=== PATIENT | female | born 1985 | race American Indian/Alaskan Native ===

== ENCOUNTER 2017-02-12 07:23 | Inpatient (IN) | payer MEDICAID ==
[2017-02-12] MEDS ORDERED: Oxytocin/Lactated Ringers 10 UNIT/1,000 ML BAG IV SCH (08:00)
[2017-02-12] MEDS ORDERED: Sodium Chloride 0.9% 10 ML Syringe FLUSH PRN (08:00)
[2017-02-12] MEDS ORDERED: Ondansetron 4 MG/2 ML SDV IVPUSH PRN ×2 (08:00→12:26)
[2017-02-12] MEDS ORDERED: Acetaminophen 325 MG Tab PO PRN (08:00)
[2017-02-12] MEDS ORDERED: Misoprostol 25 MCG (1/4 of 100 MCG) Tab PO PRN (08:05)
[2017-02-12] MEDS ORDERED: Lactated Ringers 1,000 ML IV SCH (08:15)
--- NOTE | 2017-02-12 08:31 | PCM.LDHP ---
L&D History of Present Illness - General Date of Service: 02/12/17 Admit Problem/Dx: Patient Status Order with Admit Dx/Problem 02/12/17 08:00 Patient Status [ADT] Routine Admission Diagnosis/Problem Admission Diagnosis/Problem Source of Information: Patient History Limitations: Reports: No Limitations - History of Present Illness Introduction:: Elsa is a 31-year-old at 39 weeks and 4 days who is being admitted for elective induction of labor. She reports that overall things have been going well and her mild upper respiratory infection is resolving. She reports that last evening she started having some minor vaginal bleeding mixed with her mucoid discharge. She reports that she is having some increased frequency in contractions but has not been timing them. She reports good movement. She denies any watery leaking of fluid. Quality: Reports: Dull, Pressure Severity: Mild Associated Symptoms: Reports: vaginal bleeding, vaginal discharge, mild amount Present Illness Comments:: Elsa is a 31-year-old at 39 and 4 weeks by 11 week ultrasound. She has been receiving care through several providers with a transfer of care to our practice at 33 weeks 4 days. Prior to transfer care she was receiving care in [place] beginning at 11 weeks. Her initial lab work is received from her previous provider show O+ blood type with a positive antibody screen that resulted with [place]on antibodies. Per their records the father of the baby was tested and is negative for the Meka antigen and no additional workup is needed. On our clinic had tried to receive the results of the father of the baby but we have been unsuccessful. Her CBC on 08/25/16 showed a hemoglobin of 12.5 and platelet count of 20 41,000. Other labs for her initial lab panel show rubella nonimmune, RPR negative, hepatitis B surface antigen nonreactive, and HIV negative. She had a Pap smear on 07/31/16 that was satisfactory for evaluation and negative for lesion or malignancy. She was negative for gonorrhea and chlamydia. Her 1 hour glucose test was normal at 82. Her hematocrit on 11/25/16 was 35%. She received flu vaccine on 01/22/17. Her is complicated by abnormal titer as listed above with Avon antibodies but per outside reports negative Meka antigen screening for the father of the baby, rubella nonimmune, history of ectopic managed medically, history of spontaneous with placenta previa requiring D&C and multiple blood transfusions that is suspected to have lead to her forming the Meka antibody. - Related Data Allergies/Adverse Reactions: Allergies Allergy/AdvReac Type Severity Reaction Status Date / Time banana Allergy Itching Verified 02/12/17 07:45 watermelon Allergy Itching Verified 02/12/17 07:45 Home Medications: Home Meds Vits #93/Iron Fum/FA [ Formula Tablet] 02/12/17 [History] Past Medical History HEENT History: Reports: Allergic Rhinitis PREVENTION COORDINATOR History: Reports: None : 4 Para: 3 (0030) Dermatologic History: Reports: Eczema - Past Surgical History Female Surgical History: Reports: D&C (For placental abruption in the setting of placenta previa and third ) Social & Family History - Family History Cardiac: Reports: None Respiratory: Reports: None Endocrine/Metabolic: Reports: None - Tobacco Use Smoking Status *Q: Never Smoker - Alcohol Use Alcohol Use History: No - Recreational Drug Use Recreational Drug Use: No - Sexual History Sexual History: Reports: Single Partner - Living Situation & Occupation Living situation: Reports: , with Family Occupation: Unemployed H&P Review of Systems - Review of Systems: Review Of Systems: See Below General: Denies: Fever, Chills HEENT: Reports: Post Nasal Drip, Sinus Congestion (resolving). Denies: Headaches, Sore Throat, Visual Changes Pulmonary: Denies: Shortness of Breath, Wheezing, Cough Cardiovascular: Denies: Chest Pain, Palpitations Gastrointestinal: Reports: Diarrhea (Mild). Denies: Abdominal Pain, Constipation, Nausea, Vomiting Genitourinary: Denies: Dysuria, Frequency, Burning, Pain, Urgency Musculoskeletal: Reports: Back Pain. Denies: Leg Pain, Joint Pain, Muscle Pain Skin: Denies: Rash Psychiatric: Denies: Depression, Anxiety Neurological: Denies: Headache Hematologic/Lymphatic: Denies: Anemia, Easy Bleeding, Easy Bruising Immunologic: Reports: Seasonal Allergy L&D Exam - Exam Exam: See Below - Vital Signs Weight: 70.171 kg - OB Specific Contraction Duration (sec): 30 Contraction Frequency (min): Irregular Contraction Intensity: Mild Movement: Active Heart Tones: Present Heart Tones per Min: 135 (Positive accelerations) Heart Rate (FHR) Variability: Moderate (6-25 bmp) Presentation: Vertex Estimated Weight: 6.5-7 lbs by Tania - De La Rosa Score De La Rosa Score Cervix Position: Posterior De La Rosa Score Consistency: Soft De La Rosa Score Effacement: 51-70% De La Rosa Score Dilation: 1-2 cm De La Rosa Score 's Station: -3 De La Rosa Score Total: 5 - Exam General: Alert, Oriented HEENT: Conjunctiva Clear, EOMI Neck: Supple, Trachea Midline Lungs: Clear to Auscultation, Normal Respiratory Effort Cardiovascular: Regular Rate, Regular Rhythm GI/Abdominal Exam: Soft, Non-Tender Genitourinary: Normal external exam Back Exam: Normal Inspection Extremities: Normal Inspection Skin: Warm, Dry, Intact - Problem List (1) 39 weeks gestation of SNOMED Code(s): 31397815 ICD Code: Z3A.39 - 39 WEEKS GESTATION OF Status: Acute Current Visit: Yes (2) Elective induction of labor planned SNOMED Code(s): 520501727 ICD Code: [id number] - Status: Acute Current Visit: Yes (3) Abnormal antibody titer SNOMED Code(s): 381319312 ICD Code: R76.8 - OTHER SPECIFIED ABNORMAL IMMUNOLOGICAL FINDINGS IN SERUM Status: Acute Current Visit: Yes (4) Rubella non-immune status, antepartum SNOMED Code(s): 736053478 ICD Code: O99.89 - OTH DISEASES AND CONDITIONS COMPL PREG/CHLDBRTH; Z28.3 - UNDERIMMUNIZATION STATUS Status: Acute Current Visit: Yes (5) History of ectopic SNOMED Code(s): 707290360 ICD Code: Z87.59 - PERSONAL HISTORY OF COMP OF PREG, CHLDBRTH AND THE PUERP Status: Acute Current Visit: Yes Problem List Initiated/Reviewed/Updated: Yes Orders Last 24hrs: Active Orders 24 hr Category Date Time Status Patient Status [ADT] Routine ADT 02/12/17 08:00 Ordered Activity as Tolerated [RC] PFP Care 02/12/17 08:00 Ordered Antiembolic Devices [RC] .Routine Care 02/12/17 08:01 Ordered Communication Order [RC] ASDIRECTED Care 02/12/17 08:00 Ordered Communication Order [RC] ASDIRECTED Care 02/12/17 08:05 Ordered Communication Order [RC] ASDIRECTED Care 02/12/17 08:05 Ordered Communication Order [RC] ASDIRECTED Care 02/12/17 08:05 Ordered Heart Tones [RC] ASDIRECTED Care 02/12/17 08:01 Ordered Monitoring [RC] INTERMITTENT Care 02/12/17 08:05 Ordered Notify Provider Vital Signs [RC] PRN Care 02/12/17 08:03 Ordered Notify Provider [RC] ASDIRECTED Care 02/12/17 08:05 Ordered Notify Provider [RC] PFP Care 02/12/17 08:00 Ordered Notify Provider [RC] PRN Care 02/12/17 08:00 Ordered Peripheral IV Care [RC] . DIRECTED Care 02/12/17 08:01 Ordered Pump Management, Intrathecal [RC] ASDIRECTED Care 02/12/17 08:05 Ordered Up ad Fiona [RC] ASDIRECTED Care 02/12/17 08:07 Ordered Urinary Catheter Assessment [RC] ASDIRECTED Care 02/12/17 08:00 Ordered VTE/DVT Education [RC] PER UNIT ROUTINE Care 02/12/17 08:01 Ordered Vaginal Exam [RC] ASDIRECTED Care 02/12/17 08:05 Ordered Vital Signs [RC] ASDIRECTED Care 02/12/17 08:05 Ordered Vital Signs [RC] PER UNIT ROUTINE Care 02/12/17 08:00 Ordered Regular Diet [DIET] Diet 02/12/17 Breakfast Ordered CBC W/O DIFF,HEMOGRAM [HEME] Routine Lab 02/12/17 08:00 Ordered Acetaminophen [Tylenol] Med 02/12/17 08:00 Ordered 650 mg PO Q6H PRN Lactated Ringers [Ringers, Lactated] 1,000 ml Med 02/12/17 08:00 Ordered IV ASDIRECTED Lactated Ringers [Ringers, Lactated] 1,000 ml Med 02/12/17 08:15 Ordered IV ASDIRECTED Misoprostol [Cytotec] Med 02/12/17 08:05 Ordered 25 mcg PO Q4H PRN Ondansetron [Zofran] Med 02/12/17 08:00 Ordered 4 mg IVPUSH Q4H PRN Oxytocin/Lactated Ringers [Pitocin in LR 10 Units/1,000 Med 02/12/17 08:00 Ordered ML] 10 unit in 1,000 ml IV .CONTINUOUS Sodium Chloride 0.9% [Saline Flush] Med 02/12/17 08:00 Ordered 10 ml FLUSH ASDIRECTED PRN DVT/VTE Prophylaxis Reflex [OM.PC] Routine Ot 02/12/17 08:00 Ordered Electronic Heart Tones Ext w TOCO [WOMSER] Ot 02/12/17 08:00 Ordered Routine Electronic Heart Tones Internal [WOMSER] Per Unit Ot 02/12/17 08:00 Ordered Routine Medication Administration Instruction [OM.PC] Ot 02/12/17 08:15 Ordered ASDIRECTED Peripheral IV Insertion Adult [OM.PC] Routine Ot 02/12/17 08:00 Ordered Peripheral IV Insertion Adult [OM.PC] Routine Ot 02/12/17 08:05 Ordered Resuscitation Status Routine Resus Stat 02/12/17 08:00 Ordered Medication Orders Acetaminophen (Tylenol) 650 mg PO Q6H PRN PRN Reason: Pain (Mild 1-3) and fever Lactated Ringer's (Ringers, Lactated) 1,000 mls @ 100 mls/hr IV ASDIRECTED ALISON Lactated Ringer's (Ringers, Lactated) 1,000 mls @ 40 mls/hr IV ASDIRECTED ALISON Oxytocin/Lactated Ringer's (Pitocin In Lr 10 Units/1,000 Ml) 10 unit in 1,000 mls @ 100 mls/hr IV .CONTINUOUS [facility] Misoprostol (Cytotec) 25 mcg PO Q4H PRN PRN Reason: cervical ripening Ondansetron HCl (Zofran) 4 mg IVPUSH Q4H PRN PRN Reason: Nausea/Vomiting Sodium Chloride (Saline Flush) 10 ml FLUSH ASDIRECTED PRN PRN Reason: Keep Vein Open Assessment/Plan Comment:: * Refer to observation for elective induction of labor * Start induction of labor with Cytotec 25 mcg vaginally now and every 4 hours * Intermittent monitoring while on Cytotec with monitoring for an hour after placement of Cytotec and may ambulate as tolerated with category 1 monitoring * Place IV and have IV fluids at 125 ml/hr if not tolerating regular diet * May have regular diet while on Cytotec induction * Activity as tolerated * May have epidural as desired * Patient to have MMR vaccine after delivery due to rubella nonimmune status * Plans to breast-feed after delivery * Anticipate vaginal delivery unless otherwise indicated Ildefonso La M.D. 8:54 AM 02/12/2017
--- NOTE | 2017-02-12 12:08 | PCM.PNLD ---
Labor Progress Note - VS & Meds Vital Signs: Last Vital Signs Temp 36.3 C 02/12/17 08:05 Pulse 82 02/12/17 08:05 Resp 16 02/12/17 08:05 BP 112/72 02/12/17 08:05 Pulse Ox Active Medications: Current Medications Acetaminophen (Tylenol) 650 mg PO Q6H PRN PRN Reason: Pain (Mild 1-3) and fever Lactated Ringer's (Ringers, Lactated) 1,000 mls @ 100 mls/hr IV ASDIRECTED ALISON Lactated Ringer's (Ringers, Lactated) 1,000 mls @ 40 mls/hr IV ASDIRECTED ALISON Oxytocin/Lactated Ringer's (Pitocin In Lr 10 Units/1,000 Ml) 10 unit in 1,000 mls @ 100 mls/hr IV .CONTINUOUS [facility] Misoprostol (Cytotec) 25 mcg PO Q4H PRN PRN Reason: cervical ripening Last Admin: 02/12/17 08:27 Dose: 25 mcg Ondansetron HCl (Zofran) 4 mg IVPUSH Q4H PRN PRN Reason: Nausea/Vomiting Sodium Chloride (Saline Flush) 10 ml FLUSH ASDIRECTED PRN PRN Reason: Keep Vein Open - Uterine Contractions Uterine Monitoring Mode: External Meyers Contraction Frequency (min): Every 2-3 min with couplet contractions Contraction Duration (sec): 30 Contraction Intensity: Mild to Moderate Uterine Resting Tone: Soft - Monitoring Monitor Mode: Doppler/Auscultation Heart Rate (FHR) Baseline: 145 (with positive accelerations) Heart Rate (FHR) Variability: Moderate (6-25 bmp) Accelerations: Present, 15x15 Decelerations: None Strip Review: Category I - Vaginal Exam Dilation (cm): 2 Effacement (Percent): 70 Station: -3 Cervical Position: Midposition Sterile Vaginal Exam Performed By: Ildefonso La - Labor Progress (Free Text) Labor Progress: * Patient with some cervical change from 1 to 2 cm with first dose of Cytotec * Tachysystole after 4 hours after first dose of Cytotec. Will give additional hour to monitor contractions and determine if we should go to next dose of Cytotec or start on Pitocin. * Patient may have epidural as desired * Patient may have lunch Ildefonso La MD 12:08 PM 02/12/17
[2017-02-12] MEDS ORDERED: ePHEDrine 50 MG/ML SDV IVPUSH PRN (12:26)
[2017-02-12] MEDS ORDERED: fentaNYL 100 MCG/2 ML SDV EPIDUR PRN (12:26)
--- NOTE | 2017-02-12 12:32 | PCM.PREANE ---
Preanesthetic Assessment - Anesthesia/Transfusion/Family Hx Anesthesia History: Prior Anesthesia Without Reaction Family History of Anesthesia Reaction: No Transfusion History: Prior Transfusion Without Reaction Intubation History: Unknown - Review of Systems Pulmonary: Cough Cardiovascular: No Symptoms Gastrointestinal: Diarrhea Neurological: No Symptoms Other: Reports: Sinus Problem (recent cold with sinus drainage noted.) - Physical Assessment NPO Status Date: 02/12/17 NPO Status Time: 10:00 Pulse: 82 O2 Sat by Pulse Oximetry: 99 Respiratory Rate: 16 Blood Pressure: 112/72 Temperature: 36.3 C Vital Signs: Last Vital Signs Temp 36.3 C 02/12/17 08:05 Pulse 82 02/12/17 08:05 Resp 16 02/12/17 08:05 BP 112/72 02/12/17 08:05 Pulse Ox Height: 1.57 m Weight: 70.171 kg ASA Class: 2 Mental Status: Alert & Oriented x3 Airway Class: Mallampati = 3 Dentition: Reports: Normal Dentition, Caries Thyro-Mental Finger Breadths: 3 Mouth Opening Finger Breadths: 3 ROM/Head Extension: Full Lungs: Clear to Auscultation, Normal Respiratory Effort Cardiovascular: Regular Rate, Regular Rhythm, No Murmurs - Lab Values: Laboratory Last Values WBC 7.90 K/mm3 (3.98-10.04) 02/12/17 08:25 RBC 4.22 M/mm3 (3.98-5.22) 02/12/17 08:25 Hgb 11.9 gm/L (11.2-15.7) 02/12/17 08:25 Hct 35.7 % (34.1-44.9) 02/12/17 08:25 MCV 84.6 fl (79.4-94.8) 02/12/17 08:25 MCH 28.2 pg (25.6-32.2) 02/12/17 08:25 MCHC 33.3 g/dl (32.2-35.5) 02/12/17 08:25 RDW Std Deviation 40.8 fL (36.4-46.3) 02/12/17 08:25 Plt Count 272 K/mm3 (182-369) 02/12/17 08:25 MPV 11.6 fl (9.4-12.3) 02/12/17 08:25 Above labs reviewed and noted. 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 Other OB/BYN History: placental abruption/previa Dermatologic History: Reports: Eczema - Past Surgical History Female Surgical History: Reports: D&C (For placental abruption in the setting of placenta previa and third ) - SUBSTANCE USE Smoking Status *Q: Never Smoker Second Hand Smoke Exposure: No Recreational Drug Use History: No - HOME MEDS Home Medications: Home Meds Vits #93/Iron Fum/FA [ Formula Tablet] 02/12/17 [History] - CURRENT (IN HOUSE) MEDS Current Meds: Current Medications Acetaminophen (Tylenol) 650 mg PO Q6H PRN PRN Reason: Pain (Mild 1-3) and fever Ephedrine Sulfate (Ephedrine Sulfate) 5 mg IVPUSH ASDIRECTED PRN PRN Reason: Hypotension Fentanyl (Sublimaze) 100 mcg EPIDUR Q3H PRN PRN Reason: Pain Fentanyl/Bupivacaine HCl (Fentanyl/Bupivacaine/Ns 2 Mcg-0.125% 100 Ml) 100 ml EPIDUR ASDIRECTED ALISON Lactated Ringer's (Ringers, Lactated) 1,000 mls @ 100 mls/hr IV ASDIRECTED ALISON Lactated Ringer's (Ringers, Lactated) 1,000 mls @ 40 mls/hr IV ASDIRECTED ALISON Oxytocin/Lactated Ringer's (Pitocin In Lr 10 Units/1,000 Ml) 10 unit in 1,000 mls @ 100 mls/hr IV .CONTINUOUS [facility] Misoprostol (Cytotec) 25 mcg PO Q4H PRN PRN Reason: cervical ripening Last Admin: 02/12/17 08:27 Dose: 25 mcg Ondansetron HCl (Zofran) 4 mg IVPUSH Q4H PRN PRN Reason: Nausea/Vomiting Ondansetron HCl (Zofran) 4 mg IVPUSH ONETIME PRN PRN Reason: Nausea/Vomiting Sodium Chloride (Saline Flush) 10 ml FLUSH ASDIRECTED PRN PRN Reason: Keep Vein Open
[2017-02-12] MEDS: Lactated Ringers 1,000 ML IV SCH ×3 (13:45→22:12)
[2017-02-12] MEDS: Bupivacaine/fentaNYL/NS 100 ML Bag EPIDUR SCH ×2 (14:11→22:11)
[2017-02-12] MEDS ORDERED: Bupivacaine 0.25% 10 ML SDV ONE (22:22)
[2017-02-13] MEDS ORDERED: Sodium Chloride 0.9% 10 ML Syringe FLUSH PRN ×2 (01:38→10:36)
[2017-02-13] MEDS ORDERED: Oxytocin/Lactated Ringers 10 UNIT/1,000 ML BAG IV SCH ×2 (01:45→10:36)
[2017-02-13] MEDS ORDERED: Lactated Ringers 1,000 ML IV SCH ×2 (01:45→10:36)
--- NOTE | 2017-02-13 01:45 | PCM.PNLD ---
Labor Progress Note - VS & Meds Vital Signs: Last Vital Signs Temp 36.3 C 02/12/17 12:37 Pulse 82 02/12/17 12:37 Resp 16 02/12/17 12:37 BP 112/72 02/12/17 12:37 Pulse Ox 99 02/12/17 12:37 Active Medications: Current Medications Acetaminophen (Tylenol) 650 mg PO Q6H PRN PRN Reason: Pain (Mild 1-3) and fever Ephedrine Sulfate (Ephedrine Sulfate) 5 mg IVPUSH ASDIRECTED PRN PRN Reason: Hypotension Fentanyl (Sublimaze) 100 mcg EPIDUR Q3H PRN PRN Reason: Pain Last Admin: 02/12/17 14:11 Dose: 100 mcg Fentanyl/Bupivacaine HCl (Fentanyl/Bupivacaine/Ns 2 Mcg-0.125% 100 Ml) 100 ml EPIDUR ASDIRECTED ALISON Last Admin: 02/12/17 22:11 Dose: 100 ml Lactated Ringer's (Ringers, Lactated) 1,000 mls @ 100 mls/hr IV ASDIRECTED [facility] Last Admin: 02/12/17 22:12 Dose: 100 mls/hr Oxytocin/Lactated Ringer's (Pitocin In Lr 10 Units/1,000 Ml) 10 unit in 1,000 mls @ 100 mls/hr IV .CONTINUOUS [facility] Ondansetron HCl (Zofran) 4 mg IVPUSH Q4H PRN PRN Reason: Nausea/Vomiting Ondansetron HCl (Zofran) 4 mg IVPUSH ONETIME PRN PRN Reason: Nausea/Vomiting Sodium Chloride (Saline Flush) 10 ml FLUSH ASDIRECTED PRN PRN Reason: Keep Vein Open Discontinued Medications Lactated Ringer's (Ringers, Lactated) 1,000 mls @ 40 mls/hr IV ASDIRECTED [facility] Misoprostol (Cytotec) 25 mcg PO Q4H PRN PRN Reason: cervical ripening Last Admin: 02/12/17 08:27 Dose: 25 mcg - Uterine Contractions Uterine Monitoring Mode: External [place] Contraction Frequency (min): Every 3-4 min Contraction Duration (sec): 30-45 Contraction Intensity: Moderate to Strong Uterine Resting Tone: Soft - Monitoring Monitor Mode: Doppler/Auscultation Heart Rate (FHR) Baseline: 145 (with positive accelerations) Heart Rate (FHR) Variability: Moderate (6-25 bmp) Accelerations: Present, 15x15 Decelerations: None Strip Review: Category I - Vaginal Exam Dilation (cm): 8 Effacement (Percent): 90 Station: 2 Cervical Position: Anterior Sterile Vaginal Exam Performed By: Ildefonso La - Labor Progress (Free Text) Labor Progress: Slowing of contractions without augmentation and unchanged cervix over the course of 5 hours. Artificial rupture of membranes with slight yellow colored fluid. IUPC placed without difficulty. Pitocin infusion started and will titrate to get a regular contraction pattern with greater than 200 montivideo units. If continues to have no change after 4 hours with adequate contraction pattern then will discuss section with patient. Anticipate vaginal delivery unless otherwise indicated. Ildefonso La MD 1:45 AM 02/13/17
[2017-02-13] MEDS: Lactated Ringers 1,000 ML IV SCH ×3 (04:00→07:23)
[2017-02-13] MEDS ORDERED: Witch Hazel Medicated Pads 100/Jar TOP PRN ×2 (09:56→10:36)
[2017-02-13] MEDS ORDERED: Benzocaine/Menthol 20%-0.5% Spray 56 GM Canister TOP PRN ×2 (09:56→10:36)
[2017-02-13] MEDS ORDERED: Measles, Mumps & Rubella Vaccine 0.5 ML SDV SUBCUT ONE (10:36)
[2017-02-13] MEDS ORDERED: Lanolin 100% Cream 7 GM Tube TOP PRN (10:36)
[2017-02-13] MEDS ORDERED: Docusate Sodium 100 MG Cap PO PRN (10:36)
[2017-02-13] MEDS ORDERED: Famotidine 20 MG Tab PO PRN (10:36)
[2017-02-13] MEDS ORDERED: Simethicone 80 MG Tab.Chew PO PRN (10:36)
[2017-02-13] MEDS ORDERED: Hydrocortisone Acetate 25 MG Supp RECTAL PRN (10:36)
[2017-02-13] MEDS ORDERED: Magnesium Hydroxide 400 MG/5 ML Susp 30 ML Cup PO PRN (10:36)
[2017-02-13] MEDS: Prenatal Multivitamin with Calcium/Folic Acid/Iron Tab PO SCH (11:11)
[2017-02-13] MEDS: Ibuprofen 600 MG Tab PO PRN (11:11)
--- NOTE | 2017-02-13 22:46 | PCM.DEL ---
L & D Note - General Info Date of Service: 02/13/17 Mother's Due Date: 02/15/17 - Delivery Note Labor: Augmented by ARM, Augmented by Oxytocin Cervical Ripening Method: Misoprostil, Oxytocin Delivery Outcome: Livebirth Delivery Method: Spontaneous Vaginal Delivery-Single Presentation: Right Occiput Anterior (LEONARD) Nuchal Cord: None Prep: Povidone-Iodine (Betadine Anesthesia Type: Epidural Amniotic Fluid Description: Meconium Stained Episiotomy Type: None Laceration: 2nd Degree, Labial Suture type: Vicryl Suture size: 3-0 Placenta: Intact, Spontaneous Cord: 3 Vessels Estimated Blood Loss: 300 Resuscitation Needed: No Leoma: Suctioned, Bulb Syringe Provider: Yuri Birmingham Score 1 min: 9 Score 5 min: 9 Second Stage Interventions: Reports: Pushing, Knee Chest Position Delivery Comments (Free Text/Narrative):: Stage I: Elsa Ramírez was admitted for elective induction of labor on 2016. On admission her cervix was dilated to 1 cm. She was GBS negative. She was given 1 dose of Cytotec for her induction. After her first dose she had continuous regular contractions throughout the day. She was given an epidural for anesthesia. She progressed to approximately 8 cm in the early evening of hospital day #1. She was unchanged after approximately 6 hours and had artificial rupture of membranes with yellow colored fluid. She had an IUPC that was placed at that time and she was started on augmentation with Pitocin. She progressed to complete and pushing. Stage II: On 02/13/2017 she had a normal vaginal delivery of a live male at 08 33. Apgars of 9 & 9. Weight of 3690 g (8 lbs 2.2 oz). Length of 20 inches. There was oh nuchal cord. was delivered in LEONARD position. The cord was doubly clamped and cut. was placed on mother's abdomen and then taken to warmer for further resuscitation. Stage III: She had a spontaneous delivery of an intact placenta in Ezequiel presentation. Three vessel cord. She was given pitocin and fundal massage. She had a midline second-degree and a superficial left labial laceration. The second-degree midline laceration was repaired with 3-0 Vicryl. The superficial left labial laceration was repaired with 4-0 Vicryl. Mom and baby were stable to recovery. EBL of 300 mL. Ildefonso La MD 10:40 PM 02/13/2017 - Patient Data Vitals - Most Recent: Last Vital Signs Temp 36.5 C 02/13/17 19:50 Pulse 81 02/13/17 19:50 Resp 18 02/13/17 19:50 BP 103/76 02/13/17 19:50 Pulse Ox 100 02/13/17 19:50 Weight - Most Recent: 70.171 kg I&O - Last 24 Hours: Intake & Output 02/13/17 02/13/17 02/13/17 06:59 14:59 22:59 Intake Total 1000 480 Balance 1000 480 Med Orders - Current: Current Medications Acetaminophen (Tylenol) 650 mg PO Q6H PRN PRN Reason: mild pain or fever Benzocaine/Menthol (Dermoplast Pain Relief [place]) 0 gm TOP ASDIRECTED PRN PRN Reason: Perineal Comfort Measure Last Admin: 02/13/17 11:08 Dose: 1 applic Docusate Sodium (Colace) 100 mg PO BID PRN PRN Reason: Constipation Emollient Ointment (Lansinoh Hpa) 0 gm TOP ASDIRECTED PRN PRN Reason: Sore Nipples Famotidine (Pepcid) 20 mg PO BID PRN PRN Reason: Heartburn Hydrocortisone Acetate (Anucort-Hc) 25 mg RECTAL BID PRN PRN Reason: Hemorrhoid pain Lactated Ringer's (Ringers, Lactated) 1,000 mls @ 125 mls/hr IV ASDIRECTED ALISON Oxytocin/Lactated Ringer's (Pitocin In Lr 10 Units/1,000 Ml) 10 unit in 1,000 mls @ 100 mls/hr IV TITRATE ALISON PRN Reason: Protocol Ibuprofen (Motrin) 600 mg PO Q6H PRN PRN Reason: Mild pain or fever Last Admin: 02/13/17 11:11 Dose: 600 mg Magnesium Hydroxide (Milk Of Magnesia) 30 ml PO BEDTIME PRN PRN Reason: Constipation Prenat Multivit/Lakin/Iron/Folic Ac ( Plus Iron) 1 each PO DAILY ALISON Last Admin: 02/13/17 11:11 Dose: 1 each Simethicone (Simethicone) 80 mg PO Q4H PRN PRN Reason: Gas Sodium Chloride (Saline Flush) 10 ml FLUSH ASDIRECTED PRN PRN Reason: Keep Vein Open [place] (Tucks) 1 pad TOP ASDIRECTED PRN PRN Reason: Hemorrhoid pain Last Admin: 02/13/17 11:08 Dose: 1 applic Discontinued Medications Acetaminophen (Tylenol) 650 mg PO Q6H PRN PRN Reason: Pain (Mild 1-3) and fever Benzocaine/Menthol (Dermoplast Pain Relief [place]) 0 gm TOP ASDIRECTED PRN PRN Reason: Perineal Comfort Measure Bupivacaine HCl (Sensorcaine-Mpf 0.25%) 10 ml [facility] Stop: 02/12/17 22:23 Ephedrine Sulfate (Ephedrine Sulfate) 5 mg IVPUSH ASDIRECTED PRN PRN Reason: Hypotension Fentanyl (Sublimaze) 100 mcg EPIDUR Q3H PRN PRN Reason: Pain Last Admin: 02/12/17 14:11 Dose: 100 mcg Fentanyl/Bupivacaine HCl (Fentanyl/Bupivacaine/Ns 2 Mcg-0.125% 100 Ml) 100 ml EPIDUR ASDIRECTED ALISON Last Admin: 02/12/17 22:11 Dose: 100 ml Lactated Ringer's (Ringers, Lactated) 1,000 mls @ 100 mls/hr IV ASDIRECTED ALISON Last Admin: 02/13/17 07:23 Dose: 100 mls/hr Lactated Ringer's (Ringers, Lactated) 1,000 mls @ 40 mls/hr IV ASDIRECTED ALISON Oxytocin/Lactated Ringer's (Pitocin In Lr 10 Units/1,000 Ml) 10 unit in 1,000 mls @ 100 mls/hr IV .CONTINUOUS ALISON Last Admin: 02/13/17 09:17 Dose: 500 mls/hr Lactated Ringer's (Ringers, Lactated) 1,000 mls @ 40 mls/hr IV ASDIRECTED ALISON Oxytocin/Lactated Ringer's (Pitocin In Lr 10 Units/1,000 Ml) 10 unit in 1,000 mls @ 12 mls/hr IV TITRATE ALISON; 2 MUNITS/MIN PRN Reason: Protocol Last Titration: 02/13/17 05:15 Dose: 16 munits/min, 96 mls/hr Measles/Mumps/Rubella Vaccine Live (M-M-R Ii Vaccine) 0.5 ml SUBCUT .ONCE ONE Stop: 02/13/17 10:37 Misoprostol (Cytotec) 25 mcg PO Q4H PRN PRN Reason: cervical ripening Last Admin: 02/12/17 08:27 Dose: 25 mcg Ondansetron HCl (Zofran) 4 mg IVPUSH Q4H PRN PRN Reason: Nausea/Vomiting Ondansetron HCl (Zofran) 4 mg IVPUSH ONETIME PRN PRN Reason: Nausea/Vomiting Sodium Chloride (Saline Flush) 10 ml FLUSH ASDIRECTED PRN PRN Reason: Keep Vein Open Sodium Chloride (Saline Flush) 10 ml FLUSH ASDIRECTED PRN PRN Reason: Keep Vein Open Witch Kavita (Tucks) 1 pad TOP ASDIRECTED PRN PRN Reason: Pain - Problem List & Annotations (1) 39 weeks gestation of SNOMED Code(s): 32864224 Code(s): Z3A.39 - 39 WEEKS GESTATION OF Status: Acute Current Visit: Yes (2) Elective induction of labor planned SNOMED Code(s): 431939376 Code(s): IIZ2649 - Status: Acute Current Visit: Yes (3) Abnormal antibody titer SNOMED Code(s): 888394069 Code(s): R76.8 - OTHER SPECIFIED ABNORMAL IMMUNOLOGICAL FINDINGS IN SERUM Status: Acute Current Visit: Yes (4) Rubella non-immune status, antepartum SNOMED Code(s): 007607044 Code(s): O99.89 - OTH DISEASES AND CONDITIONS COMPL PREG/CHLDBRTH; Z28.3 - UNDERIMMUNIZATION STATUS Status: Acute Current Visit: Yes (5) History of ectopic SNOMED Code(s): 892808198 Code(s): Z87.59 - PERSONAL HISTORY OF COMP OF PREG, CHLDBRTH AND THE PUERP Status: Acute Current Visit: Yes (6) (normal spontaneous vaginal delivery) SNOMED Code(s): 47040292 Code(s): O80 - ENCOUNTER FOR FULL-TERM UNCOMPLICATED DELIVERY Status: Acute Current Visit: Yes (7) Second degree perineal laceration, delivered, current hospitalization SNOMED Code(s): 008517019 Code(s): O70.1 - SECOND DEGREE PERINEAL LACERATION DURING DELIVERY Status: Acute Current Visit: Yes (8) First degree laceration of perineum, delivered, current hospitalization SNOMED Code(s): 509419617 Code(s): O70.0 - FIRST DEGREE PERINEAL LACERATION DURING DELIVERY Status: Acute Current Visit: Yes - Problem List Review Problem List Initiated/Reviewed/Updated: Yes - My Orders Last 24 Hours: My Active Orders 02/13/17 01:38 Vaginal Exam [RC] ASDIRECTED 02/13/17 10:36 Patient Status [ADT] Routine Activity as Tolerated [RC] PER UNIT ROUTINE May Shower [RC] ASDIRECTED Vital Signs [RC] 12,20,04 Acetaminophen [Tylenol] 650 mg PO Q6H PRN Benzocaine/Menthol [Dermoplast Pain Relief [place]chor [place]] See Dose Instructions TOP ASDIRECTED PRN Docusate Sodium [Colace] 100 mg PO BID PRN Famotidine [Pepcid] 20 mg PO BID PRN Hydrocortisone Acetate [Anucort-HC] 25 mg RECTAL BID PRN Ibuprofen [Motrin] 600 mg PO Q6H PRN Lactated Ringers [Ringers, Lactated] 1,000 ml IV ASDIRECTED Lanolin [Lansinoh HPA] See Dose Instructions TOP ASDIRECTED PRN Magnesium Hydroxide [Milk of Magnesia] 30 ml PO BEDTIME PRN Oxytocin/Lactated Ringers [Pitocin in LR 10 Units/1,000 ML] 10 unit in 1,000 ml IV TITRATE Vit with Ca/FA/Iron [ Plus Iron] 1 each PO DAILY Simethicone 80 mg PO Q4H PRN Sodium Chloride 0.9% [Saline Flush] 10 ml FLUSH ASDIRECTED PRN Witch [place]avita [Tucks] 1 pad TOP ASDIRECTED PRN Assess Lochia [WOMSER] Per Unit Routine Assess Uterine Involution [WOMSER] Per Unit Routine Breast Pump [WOMSER] Per Unit Routine Heat Therapy [OM.PC] PRN Medication Administration Instruction [OM.PC] Routine Perineal Care [OM.PC] Per Unit Routine Peripheral IV Discontinue [OM.PC] Routine Peripheral IV Insertion Adult [OM.PC] Routine Sitz Bath [OM.PC] Per Unit Routine 02/13/17 Breakfast Regular Diet [DIET] 02/14/17 10:36 Heat Therapy [OM.PC] PRN - Assessment Assessment:: Patient doing well and recovering Continue with routine care Assist with breast-feeding as needed - Plan Plan:: * Refer to observation for elective induction of labor * Start induction of labor with Cytotec 25 mcg vaginally now and every 4 hours * Intermittent monitoring while on Cytotec with monitoring for an hour after placement of Cytotec and may ambulate as tolerated with category 1 monitoring * Place IV and have IV fluids at 125 ml/hr if not tolerating regular diet * May have regular diet while on Cytotec induction * Activity as tolerated * May have epidural as desired * Patient to have MMR vaccine after delivery due to rubella nonimmune status * Plans to breast-feed after delivery * Anticipate vaginal delivery unless otherwise indicated Ildefonso La M.D. 8:54 AM 02/12/2017
[2017-02-14] MEDS: Ibuprofen 600 MG Tab PO PRN ×3 (00:33→17:38)
[2017-02-14] MEDS: Prenatal Multivitamin with Calcium/Folic Acid/Iron Tab PO SCH (08:55)
--- NOTE | 2017-02-14 11:59 | PCM.SN ---
- Free Text/Narrative Note: Post Progress Note PPD # 1 Subjective: Doing well overall. Ambulating without difficulty. Lochia minimal. Voiding without difficulty. Tolerating regular diet. Pain controlled with oral medications reports some abdominal soreness and arm soreness. Breast feeding with minimal difficulty. 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 Assist as needed Lochia minimal. Continue to monitor for appropriate lochia. Continue routine care Anticipate discharge home tomorrow Ildefonso La MD 11:58 AM 02/14/2017
[2017-02-14] MEDS: Acetaminophen 325 MG Tab PO PRN (20:08)
[2017-02-15] MEDS: Ibuprofen 600 MG Tab PO PRN ×2 (04:37→11:12)
[2017-02-15] MEDS: Acetaminophen 325 MG Tab PO PRN (09:34)
[2017-02-15] MEDS: Prenatal Multivitamin with Calcium/Folic Acid/Iron Tab PO SCH (09:34)
--- NOTE | 2017-02-15 10:35 | PCM.SN ---
- Free Text/Narrative Note: Post Progress Note PPD # 2 Subjective: Doing well overall. Ambulating without difficulty. Lochia minimal. Voiding without difficulty. Tolerating regular diet. Pain controlled with oral medications. She continues to report that she is having some abdominal soreness but that is able to be controlled with oral medications. Breast and bottle feeding with some difficulty with breast-feeding but she is supplementing with a bottle. Objective: Vitals: Last Vital Signs Temp 37.0 C 02/15/17 04:29 Pulse 83 02/15/17 04:29 Resp 16 02/15/17 04:29 BP 131/82 02/15/17 04:29 Pulse Ox 98 02/15/17 04:29 Physical Exam General: Alert and oriented, no acute distress Lungs: Clear to auscultation bilaterally Heart: Regular rate and rhythm Abdomen: Soft, minimal appropriate tenderness, non-distended, fundus midline, nontender, and below the umbilicus Extremities: No edema ASSESSMENT: 31-year-old female G 4P 1031 s/p normal vaginal delivery PPD #2, complicated by rubella nonimmune status, history of Meka isoimmunization with reported of father testing negative for [place] antigen, history of ectopic managed medically, history of spontaneous with placenta previa requiring D&C and multiple blood transfusions that is suspected to have lead to her forming the [place] antibody PLAN: Doing well Breast and bottle feeding with minimal difficulty. Assist as needed Lochia minimal. Continue to monitor for appropriate lochia. Continue routine care Anticipate discharge home today Ildefonso La MD 10:55 AM 02/15/2017
--- NOTE | 2017-02-15 10:36 | PCM.DCSUM1 ---
Discharge Summary - Hospital Course Free Text/Narrative:: Stage I: Elsa Ramírez was admitted for elective induction of labor on 2016. On admission her cervix was dilated to 1 cm. She was GBS negative. She was given 1 dose of Cytotec for her induction. After her first dose she had continuous regular contractions throughout the day. She was given an epidural for anesthesia. She progressed to approximately 8 cm in the early evening of hospital day #1. She was unchanged after approximately 6 hours and had artificial rupture of membranes with yellow colored fluid. She had an IUPC that was placed at that time and she was started on augmentation with Pitocin. She progressed to complete and pushing. Stage II: On 02/13/2017 she had a normal vaginal delivery of a live male at 08 33. Apgars of 9 & 9. Weight of 3690 g (8 lbs 2.2 oz). Length of 20 inches. There was oh nuchal cord. was delivered in LEONARD position. The cord was doubly clamped and cut. was placed on mother's abdomen and then taken to warmer for further resuscitation. Stage III: She had a spontaneous delivery of an intact placenta in Ezequiel presentation. Three vessel cord. She was given pitocin and fundal massage. She had a midline second-degree and a superficial left labial laceration. The second-degree midline laceration was repaired with 3-0 Vicryl. The superficial left labial laceration was repaired with 4-0 Vicryl. Mom and baby were stable to recovery. EBL of 300 mL. HPI Initial Comments: Stage I: Elsa Ramírez was admitted for elective induction of labor on 2016. On admission her cervix was dilated to 1 cm. She was GBS negative. She was given 1 dose of Cytotec for her induction. After her first dose she had continuous regular contractions throughout the day. She was given an epidural for anesthesia. She progressed to approximately 8 cm in the early evening of hospital day #1. She was unchanged after approximately 6 hours and had artificial rupture of membranes with yellow colored fluid. She had an IUPC that was placed at that time and she was started on augmentation with Pitocin. She progressed to complete and pushing. Stage II: On 02/13/2017 she had a normal vaginal delivery of a live male infant at 08 33. Apgars of 9 & 9. Weight of 3690 g (8 lbs 2.2 oz). Length of 20 inches. There was oh nuchal cord. was delivered in LEONARD position. The cord was doubly clamped and cut. Infant was placed on mother's abdomen and then taken to warmer for further resuscitation. Stage III: She had a spontaneous delivery of an intact placenta in Ezequiel presentation. Three vessel cord. She was given pitocin and fundal massage. She had a midline second-degree and a superficial left labial laceration. The second-degree midline laceration was repaired with 3-0 Vicryl. The superficial left labial laceration was repaired with 4-0 Vicryl. Mom and baby were stable to recovery. EBL of 300 mL. Brief History: Stage I: Elsa Ramírez was admitted for elective induction of labor on 02/12/2017. On admission her cervix was dilated to 1 cm. She was GBS negative. She was given 1 dose of Cytotec for her induction. After her first dose she had continuous regular contractions throughout the day. She was given an epidural for anesthesia. She progressed to approximately 8 cm in the early evening of hospital day #1. She was unchanged after approximately 6 hours and had artificial rupture of membranes with yellow colored fluid. She had an IUPC that was placed at that time and she was started on augmentation with Pitocin. She progressed to complete and pushing. Stage II: On 02/13/2017 she had a normal vaginal delivery of a live male infant at 08 33. Apgars of 9 & 9. Weight of 3690 g (8 lbs 2.2 oz). Length of 20 inches. There was oh nuchal cord. was delivered in LEONARD position. The cord was doubly clamped and cut. was placed on mother's abdomen and then taken to warmer for further resuscitation. Stage III: She had a spontaneous delivery of an intact placenta in Ezequiel presentation. Three vessel cord. She was given pitocin and fundal massage. She had a midline second-degree and a superficial left labial laceration. The second-degree midline laceration was repaired with 3-0 Vicryl. The superficial left labial laceration was repaired with 4-0 Vicryl. Mom and baby were stable to recovery. EBL of 300 mL. - Discharge Data Discharge Date: 02/15/17 Discharge Disposition: Home, Self-Care 01 Condition: Good - Discharge Diagnosis/Problem(s) (1) 39 weeks gestation of SNOMED Code(s): 78894197 ICD Code: Z3A.39 - 39 WEEKS GESTATION OF Status: Acute Current Visit: Yes (2) Elective induction of labor planned SNOMED Code(s): 523912817 ICD Code: [id number] - Status: Acute Current Visit: Yes (3) Abnormal antibody titer SNOMED Code(s): 414902254 ICD Code: R76.8 - OTHER SPECIFIED ABNORMAL IMMUNOLOGICAL FINDINGS IN SERUM Status: Acute Current Visit: Yes (4) Rubella non-immune status, antepartum SNOMED Code(s): 474881918 ICD Code: O99.89 - OTH DISEASES AND CONDITIONS COMPL PREG/CHLDBRTH; Z28.3 - UNDERIMMUNIZATION STATUS Status: Acute Current Visit: Yes (5) History of ectopic SNOMED Code(s): 453151728 ICD Code: Z87.59 - PERSONAL HISTORY OF COMP OF PREG, CHLDBRTH AND THE PUERP Status: Acute Current Visit: Yes (6) (normal spontaneous vaginal delivery) SNOMED Code(s): 76743751 ICD Code: O80 - ENCOUNTER FOR FULL-TERM UNCOMPLICATED DELIVERY Status: Acute Current Visit: Yes (7) Second degree perineal laceration, delivered, current hospitalization SNOMED Code(s): 514113178 ICD Code: O70.1 - SECOND DEGREE PERINEAL LACERATION DURING DELIVERY Status : Acute Current Visit: Yes (8) First degree laceration of perineum, delivered, current hospitalization SNOMED Code(s): 095560505 ICD Code: O70.0 - FIRST DEGREE PERINEAL LACERATION DURING DELIVERY Status: Acute Current Visit: Yes - Patient Summary/Data Complications: None Consults: None Hospital Course: Stage I: Elsa Ramírez was admitted for elective induction of labor on 2016. On admission her cervix was dilated to 1 cm. She was GBS negative. She was given 1 dose of Cytotec for her induction. After her first dose she had continuous regular contractions throughout the day. She was given an epidural for anesthesia. She progressed to approximately 8 cm in the early evening of hospital day #1. She was unchanged after approximately 6 hours and had artificial rupture of membranes with yellow colored fluid. She had an IUPC that was placed at that time and she was started on augmentation with Pitocin. She progressed to complete and pushing. Stage II: On 02/13/2017 she had a normal vaginal delivery of a live male at 08 33. Apgars of 9 & 9. Weight of 3690 g (8 lbs 2.2 oz). Length of 20 inches. There was oh nuchal cord. Infant was delivered in LEONARD position. The cord was doubly clamped and cut. Infant was placed on mother's abdomen and then taken to warmer for further resuscitation. Stage III: She had a spontaneous delivery of an intact placenta in Ezequiel presentation. Three vessel cord. She was given pitocin and fundal massage. She had a midline second-degree and a superficial left labial laceration. The second-degree midline laceration was repaired with 3-0 Vicryl. The superficial left labial laceration was repaired with 4-0 Vicryl. Mom and baby were stable to recovery. EBL of 300 mL. Patient doing well in course. On day #1 she was meeting all milestones. She was able to have her pain controlled with oral medications despite having some abdominal muscle soreness after delivery. She was tolerating regular diet without any nausea or vomiting. She is ambulating without difficulty. She was voiding without difficulty. She was breast- feeding initially on day #1 without difficulty. On day # 2 she continued to meet all milestones but had started to supplement breast-feeding with a small amount of bottle feeding. She desired to be discharged home in the morning of day #2. She'll follow up with Dr. La in the clinic in 1 week for routine check due to the distance that she lives from the clinic and her son has an appointment that day as well. - Patient Instructions Diet: Regular Diet as Tolerated Activity: As Tolerated Activity, Other: Nothing in the vagina for 6 weeks Driving: May Drive Today Showering/Bathing: May Shower, No Tub Bathing/Swimming (For 2 weeks) Notify Provider of: Fever, Increased Pain, Swelling and Redness, Drainage, Nausea and/or Vomiting - Discharge Plan Home Medications: Home Meds Vits #93/Iron Fum/FA [ Formula Tablet] 02/12/17 [History] Acetaminophen [Tylenol] 650 mg PO Q6H PRN tablet 02/15/17 [Rx] Benzocaine/Menthol [Dermoplast Pain Relief [place]] 1 spray TOP ASDIRECTED PRN canister 02/15/17 [Rx] Docusate Sodium [Colace] 100 mg PO BID PRN cap 02/15/17 [Rx] Hydrocortisone Acetate [Anucort-HC] 25 mg RECTAL BID PRN supp 02/15/17 [Rx] Ibuprofen [IJD: Ibuprofen] 600 mg PO Q6H PRN tablet 02/15/17 [Rx] Lanolin [Lansinoh HPA] 1 applic TOP ASDIRECTED PRN tube 02/15/17 [Rx] Witch Kavita [Tucks] 1 pad TOP ASDIRECTED PRN pad 02/15/17 [Rx] Patient Handouts: How to Take a Sitz Bath, Home Care Instructions for Mom, Care of a Perineal Tear Referrals: Ildefonso La MD [Primary Care Provider] - (Follow-up on , 02/19/2017 for routine visit.) - Discharge Summary/Plan Comment DC Time >30 min.: No - Patient Data Vitals - Most Recent: Last Vital Signs Temp 37.0 C 02/15/17 04:29 Pulse 83 02/15/17 04:29 Resp 16 02/15/17 04:29 BP 131/82 02/15/17 04:29 Pulse Ox 98 02/15/17 04:29 Weight - Most Recent: 70.171 kg I&O - Last 24 hours: Intake & Output 02/14/17 02/15/17 02/15/17 22:59 06:59 14:59 Intake Total 120 Balance 120 Med Orders - Current: Current Medications Acetaminophen (Tylenol) 650 mg PO Q6H PRN PRN Reason: mild pain or fever Last Admin: 02/15/17 09:34 Dose: 650 mg Benzocaine/Menthol (Dermoplast Pain Relief [place]) 0 gm TOP ASDIRECTED PRN PRN Reason: Perineal Comfort Measure Last Admin: 02/13/17 11:08 Dose: 1 applic Docusate Sodium (Colace) 100 mg PO BID PRN PRN Reason: Constipation Emollient Ointment (Lansinoh Hpa) 0 gm TOP ASDIRECTED PRN PRN Reason: Sore Nipples Last Admin: 02/15/17 04:38 Dose: 1 tube Famotidine (Pepcid) 20 mg PO BID PRN PRN Reason: Heartburn Hydrocortisone Acetate (Anucort-Hc) 25 mg RECTAL BID PRN PRN Reason: Hemorrhoid pain Lactated Ringer's (Ringers, Lactated) 1,000 mls @ 125 mls/hr IV ASDIRECTED [facility] Oxytocin/Lactated Ringer's (Pitocin In Lr 10 Units/1,000 Ml) 10 unit in 1,000 mls @ 100 mls/hr IV TITRATE ALISON PRN Reason: Protocol Ibuprofen (Motrin) 600 mg PO Q6H PRN PRN Reason: Mild pain or fever Last Admin: 02/15/17 04:37 Dose: 600 mg Magnesium Hydroxide (Milk Of Magnesia) 30 ml PO BEDTIME PRN PRN Reason: Constipation Prenat Multivit/Charles/Iron/Folic Ac ( Plus Iron) 1 each PO DAILY ALISON Last Admin: 02/15/17 09:34 Dose: 1 each Simethicone (Simethicone) 80 mg PO Q4H PRN PRN Reason: Gas Sodium Chloride (Saline Flush) 10 ml FLUSH ASDIRECTED PRN PRN Reason: Keep Vein Open [place] (Tucks) 1 pad TOP ASDIRECTED PRN PRN Reason: Hemorrhoid pain Last Admin: 02/13/17 11:08 Dose: 1 applic Discontinued Medications Acetaminophen (Tylenol) 650 mg PO Q6H PRN PRN Reason: Pain (Mild 1-3) and fever Benzocaine/Menthol (Dermoplast Pain Relief [place]) 0 gm TOP ASDIRECTED PRN PRN Reason: Perineal Comfort Measure Bupivacaine HCl (Sensorcaine-Mpf 0.25%) 10 ml .ROUTE .STK-MED ONE Stop: 02/12/17 22:23 Ephedrine Sulfate (Ephedrine Sulfate) 5 mg IVPUSH ASDIRECTED PRN PRN Reason: Hypotension Fentanyl (Sublimaze) 100 mcg EPIDUR Q3H PRN PRN Reason: Pain Last Admin: 02/12/17 14:11 Dose: 100 mcg Fentanyl/Bupivacaine HCl (Fentanyl/Bupivacaine/Ns 2 Mcg-0.125% 100 Ml) 100 ml EPIDUR ASDIRECTED [facility] Last Admin: 02/12/17 22:11 Dose: 100 ml Lactated Ringer's (Ringers, Lactated) 1,000 mls @ 100 mls/hr IV ASDIRECTED [facility] Last Admin: 02/13/17 07:23 Dose: 100 mls/hr Lactated Ringer's (Ringers, Lactated) 1,000 mls @ 40 mls/hr IV ASDIRECTED ALISON Oxytocin/Lactated Ringer's (Pitocin In Lr 10 Units/1,000 Ml) 10 unit in 1,000 mls @ 100 mls/hr IV .CONTINUOUS ALISON Last Admin: 02/13/17 09:17 Dose: 500 mls/hr Lactated Ringer's (Ringers, Lactated) 1,000 mls @ 40 mls/hr IV ASDIRECTED [place] Oxytocin/Lactated Ringer's (Pitocin In Lr 10 Units/1,000 Ml) 10 unit in 1,000 mls @ 12 mls/hr IV TITRATE ALISON; 2 MUNITS/MIN PRN Reason: Protocol Last Titration: 02/13/17 05:15 Dose: 16 munits/min, 96 mls/hr Measles/Mumps/Rubella Vaccine Live (M-M-R Ii Vaccine) 0.5 ml SUBCUT .ONCE ONE Stop: 02/13/17 10:37 Last Admin: 02/14/17 20:10 Dose: 0.5 ml Misoprostol (Cytotec) 25 mcg PO Q4H PRN PRN Reason: cervical ripening Last Admin: 02/12/17 08:27 Dose: 25 mcg Ondansetron HCl (Zofran) 4 mg IVPUSH Q4H PRN PRN Reason: Nausea/Vomiting Ondansetron HCl (Zofran) 4 mg IVPUSH ONETIME PRN PRN Reason: Nausea/Vomiting Sodium Chloride (Saline Flush) 10 ml FLUSH ASDIRECTED PRN PRN Reason: Keep Vein Open Sodium Chloride (Saline Flush) 10 ml FLUSH ASDIRECTED PRN PRN Reason: Keep Vein Open Witch Kavita (Tucks) 1 pad TOP ASDIRECTED PRN PRN Reason: Pain *Q Meaningful Use (DIS) - VTE *Q VTE Criteria *Q: - Stroke *Q Stroke Criteria *Q: - AMI *Q AMI Criteria *Q:
--- NOTE | 2017-02-15 16:38 | PCM48HPAN ---
Post Anesthesia Note - EVALUATION WITHIN 48HRS OF ANESTHETIC Vital Signs in Normal Range: Yes Patient Participated in Evaluation: No (Patient discharged prior to assessment. Doing well according to RN) Respiratory Function Stable: Yes Airway Patent: Yes Cardiovascular Function Stable: Yes Hydration Status Stable: Yes Pain Control Satisfactory: Yes Nausea and Vomiting Control Satisfactory: Yes Mental Status Recovered: Yes
== END 2017-02-15 11:25 | disposition home or self-care (01) | DRG 775 ==
LOC: JD.OB 07:23 → OBSVTOIN 02-13 08:33 → JD.OB 02-13 08:33
PROVIDERS: ADMIT Obstetrics & Gynecology; ATTEND Obstetrics & Gynecology
PROC: 10E0XZZ Delivery of Products of Conception, External Approach (ICD-10-PCS; principal; 2017-02-13)
PROC: 0KQM0ZZ Repair Perineum Muscle, Open Approach (ICD-10-PCS; 2017-02-13)
PROC: 3E0P7VZ Introduction of Hormone into Female Reproductive, Via Natural or Artificial Opening (ICD-10-PCS; 2017-02-13)
PROC: 10907ZC Drainage of Amniotic Fluid, Therapeutic from Products of Conception, Via Natural or Artificial Opening (ICD-10-PCS; 2017-02-13)
PROC: 0UQMXZZ Repair Vulva, External Approach (ICD-10-PCS; 2017-02-13)
PROC: 00HU33Z Insertion of Infusion Device into Spinal Canal, Percutaneous Approach (ICD-10-PCS; 2017-02-13)
PROC: 3E0R3BZ Introduction of Anesthetic Agent into Spinal Canal, Percutaneous Approach (ICD-10-PCS; 2017-02-13)
DX: O70.1 Second degree perineal laceration during delivery (principal); Z37.0 Single live birth; O70.0 First degree perineal laceration during delivery; O77.0 Labor and delivery complicated by meconium in amniotic fluid; Z3A.40 40 weeks gestation of pregnancy; O75.89 Other specified complications of labor and delivery; R76.8 Other specified abnormal immunological findings in serum; Z87.59 Personal history of other complications of pregnancy, childbirth and the puerperium; Z91.018 Allergy to other foods
CPT/HCPCS: 36415; 51702; 59300; 59409; 85027; 90707; A9270-GY; J2590; J3010; J7120